=== PATIENT | male | born 1980 | race Caucasian/White ===

== ENCOUNTER → 2020-10-19 14:45 | Outpatient (CLI) | payer SELFPAY ==
[2020-10-07 13:33] VITALS: BMI 33.2
--- NOTE | 2020-10-19 14:49 | ECHOD_ITS ---
Reason For Study: MURMUR Procedure This was a 2D Doppler, Color Flow transthoracic echocardiogram. Exam performed in department. Left Ventricle Normal LV size. Left ventricular systolic function is normal. The estimated ejection fraction is 55 %. Stage 2 diastolic dysfunction. No regional wall motion abnormalities noted. Right Ventricle Normal RV size. Normal systolic function. Atria Normal left atrium. Normal right atrium. Mitral Valve Normal mitral valve. Tricuspid Valve Normal tricuspid valve. Mild tricuspid valve insufficiency. Aortic Valve Trisinus/trileaflet aortic valve. Peak aortic valve gradient 40 mmHg. Mean aortic valve gradient 23 mmHg. Mild aortic stenosis. Mild (1+) aortic valve insufficiency. Pulmonic Valve Normal pulmonic valve. Great Vessels Normal aortic root. The pulmonary artery is normal size. Normal inferior vena cava. Pericardium/Pleural No pericardial effusion. MMode/2D Measurements & Calculations LVIDd: 4.8 cm IVSd: 1.1 cm LVOT diam: 2.0 cm LVIDs: 3.0 cm LVPWd: 1.2 cm LVOT area: 3.1 cm2 FS: 37.8 % LAV(MOD-bp): 43.1 ml LA A4 area: 16.0 cm2 LA dimension(2D): 3.6 cm LAV(MOD-bp) Indexed: 20.8 ml/m2 LAV(MOD-sp2): 42.0 ml LAV(MOD-sp4): 42.4 ml RA A4 area: 15.3 cm2 Time Measurements MV dec time: 0.26 sec Doppler Measurements & Calculations MV E max warren: 116.0 cm/sec Lat Peak E' Warren: 12.4 cm/sec Med Peak E' Warren: 6.6 cm/sec MV A max warren: 64.4 cm/sec E/E' lat: 9.4 E/E' med: 17.6 MV E/A: 1.8 Ao V2 max: 319.3 cm/sec AI max warren: 407.3 cm/sec LV V1 max: 155.0 cm/sec Ao max P.8 mmHg AI max P.5 mmHg LV V1 max P.6 mmHg Ao V2 mean: 228.4 cm/sec AI dec slope: 266.0 cm/sec2 LV V1 mean P.2 mmHg Ao mean P.0 mmHg AI P1/2t: 448.4 msec LV V1 mean: 121.4 cm/sec Ao V2 VTI: 68.5 cm LV V1 VTI: 36.0 cm AGAPITO(I,D): 1.6 cm2 AGAPITO(V,D): 1.5 cm2 SV(LVOT): 110.8 ml PA V2 max: 123.4 cm/sec TR max warren: 218.7 cm/sec TR max P.1 mmHg ECHO/Echo Complete Interpretation Summary Normal LV size. Left ventricular systolic function is normal. The estimated ejection fraction is 55 %. Stage 2 diastolic dysfunction. Mild aortic stenosis. Mild (1+) aortic valve insufficiency. Ordering Physician: Andrew Redman Referring Physician: Dagoberto Hand Performed By: Kenna Saini, MAGALY, RVT
== END ==
PROVIDERS: PCP Family Medicine; Referring Provider Internal Medicine Cardiovascular Disease; Visit Provider Internal Medicine Cardiovascular Disease
DX: I42.1 Obstructive hypertrophic cardiomyopathy (principal)
CPT/HCPCS: 93306